=== PATIENT | female | born 2000 | race Two or more races ===

== ENCOUNTER 2019-07-13 10:04 | Emergency (ER) | payer MEDICAID ==
[~2019-07-13] VITALS: Ht 160 cm; Wt 72.6 kg
[2019-07-13 10:12] VITALS: BP 145/84
--- NOTE | 2019-07-13 10:13 | NUR ---
ED Nurse Note: A/OX4. C/O RIGHT ANKLE PAIN AND WAS RECOMMENDED BY URGENT CARE TO CHECK IN DUE TO RIGHT DISTAL DIBULA FRACTURE. CRUTCHES AND JAYNE WRAP PROVIDED BY URGENT CARE.
--- NOTE | 2019-07-13 10:14 | NUR ---
ED Nurse Note: CMS INTACT. NO DEFORMINTY NOTED
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
--- NOTE | 2019-07-13 11:00 | NUR ---
ED Nurse Note: splint applied by structural design engineer
[2019-07-13 11:44] VITALS: BP 138/70
--- NOTE | 2019-07-13 11:44 | NUR ---
ER DISCHARGE NOTE: Patient is cleared to be discharged per ERMD, pt is aox4, on room air, with stable vital signs. pt was given dc and prescription instructions, pt was able to verbalize understanding, pt id band removed without complications. pt took all belongings. Pt was provided with crutches and teaching provided. pt verbalized understanding. pt left ed via crutches.
--- NOTE | 2019-07-13 12:10 | Diagnostic Imaging Report ---
Indication: Pain status post injury Technique: XRAY Ankle Compl Min 3v R Comparison: None Findings: Bone mineralization within normal limits. There is an acute fracture of the distal fibula at the level of the syndesmosis. Ankle mortise appears intact on these nonstress views. No ankle joint effusion is appreciated radiographically. Imaged portions of the hindfoot grossly unremarkable. No radiopaque foreign body. Impression: Acute fracture of the distal fibula with overlying soft tissue swelling.
== END 2019-07-13 11:44 | disposition home or self-care (01) ==
LOC: EMR 10:35
DX: S82.401A Unspecified fracture of shaft of right fibula, initial encounter for closed fracture (principal); V00.121A Fall from non-in-line roller-skates, initial encounter; Y93.51 Activity, roller skating (inline) and skateboarding; Y92.9 Unspecified place or not applicable
CPT/HCPCS: 29515; 73610; Z7502; 99283